=== PATIENT | male | born 1995 | race Hispanic/Latino ===

== ENCOUNTER 2023-08-11 17:15 | Emergency (ER) | payer BC ==
[~2023-08-11] VITALS: Ht 167.6 cm; Wt 59.0 kg
[2023-08-11 17:42] VITALS: BP 143/89; PULSE 78; O2SAT 100
[2023-08-11 18:02] LABS: APPEARANCE,URINE CLEAR (CLEAR); BILIRUBIN,URINE NEGATIVE (NEGATIVE); COLOR,URINE COLORLESS (YELLOW); GLUCOSE, URINE (UA) NEGATIVE (NEGATIVE); KETONES,URINE NEGATIVE (NEGATIVE); LEUKOCYTE ESTERASE ,URINE NEGATIVE Leu/uL (NEGATIVE); NITRATE,URINE NEGATIVE (NEGATIVE); OCCULT BLOOD,URINE NEGATIVE (NEGATIVE); PROTEIN,URINE NEGATIVE (NEGATIVE); UROBILINOGEN,URINE 0.2 mg/dL (0.2-1.0)
[2023-08-11 18:03] LABS: ADD UA MICROSCOPIC YES
[2023-08-11 18:04] LABS: SQUAMOUS EPITHELIAL CELL,UR RARE /HPF (0-2)
[2023-08-11 18:17] LABS: HEMATOCRIT 44.1 % (42-54); MEAN CORPUSCULAR HEMOGLOBIN 29.9 pg (27.0-33.0); MEAN CORPUSCULAR HGB CONC 34.9 g/dL (32.0-36.0); MEAN CORPUSCULAR VOLUME 85.6 fL (79-99); RED BLOOD CELL COUNT(AUTO) 5.15 MIL/uL (4.50-6.20); RED CELL DISTRIBUTION WIDTH 11.8 % (11.0-15.5); WHITE BLOOD COUNT (AUTO) 7.4 K/uL (4.8-10.8)
[2023-08-11 18:30] LABS: POTASSIUM 3.3 mmol/L (3.5-5.1)
[2023-08-11] MEDS ORDERED: CEPH500T PO (19:25)
== END 2023-08-11 19:42 | disposition home or self-care (01) ==
LOC: EDH 17:15
DX: R00.2 Palpitations (principal); R59.0 Localized enlarged lymph nodes
CPT/HCPCS: 36415; 71045; 80048; 81001; 84484; 85027; 93005